=== PATIENT | female | born 1960 | race Caucasian/White ===

== ENCOUNTER 2017-07-15 10:19 | Outpatient (CLI) | payer OTHER ==
[2015-05-14 19:19] VITALS: BP 132/68
== END 2017-07-15 10:20 ==
LOC: LAB 10:19
PROVIDERS: ATTEND Physician Assistant
DX: R21 Rash and other nonspecific skin eruption (principal)
CPT/HCPCS: 36415; 86592; 86780

== ENCOUNTER 2017-08-21 09:43 | Outpatient (CLI) | payer OTHER ==
[2015-05-14 19:19] VITALS: BP 132/68
== END 2017-08-21 09:44 ==
LOC: LAB 09:43
PROVIDERS: ATTEND Family Medicine
DX: L74.519 Primary focal hyperhidrosis, unspecified (principal)
CPT/HCPCS: 36415; 84439; 84443; 84481

== ENCOUNTER 2018-06-05 09:52 | Outpatient (CLI) | payer OTHER ==
[2015-05-14 19:19] VITALS: BP 132/68
[2018-06-05 10:16] LABS: MEAN CORPUSCULAR HEMOGLOBIN 30.2 pg (28.0-34.0)
[2018-06-05 10:17] LABS: BASOPHILS % 0.4 (0.0-1.5); EOSINOPHILS % 2.8 % (0.0-6.8); NEUTROPHILS # 3.5 # k/uL (1.4-7.7)
[2018-06-05 10:27] LABS: eGFR (Non-African) > 60
== END 2018-06-05 10:05 ==
LOC: LAB 09:52
PROVIDERS: ATTEND Family Medicine
DX: R53.82 Chronic fatigue, unspecified (principal)
CPT/HCPCS: 36415; 80053; 85025

== ENCOUNTER 2019-02-09 08:44 | Outpatient (CLI) | payer OTHER ==
[2015-05-14 19:19] VITALS: BP 132/68
[2019-02-09 09:14] LABS: BASOPHILS % 0.4 % (0.0-1.5); NEUTROPHILS # 2.2 # k/uL (1.4-7.7)
[2019-02-09 09:39] LABS: eGFR (Non-African) > 60
== END 2019-02-09 08:46 ==
LOC: LAB 08:44
PROVIDERS: ATTEND Physician Assistant
DX: L40.3 Pustulosis palmaris et plantaris (principal)
CPT/HCPCS: 36415; 80053; 85025; 86704; 86706; 86803; 87340

== ENCOUNTER 2019-05-18 08:47 | Outpatient (CLI) | payer OTHER ==
[2015-05-14 19:19] VITALS: BP 132/68
[2019-05-18 08:58] LABS: BASOPHILS % 0.4 % (0.0-1.5); NEUTROPHILS # 3.2 # k/uL (1.4-7.7)
[2019-05-18 09:32] LABS: eGFR (Non-African) > 60
== END 2019-05-18 09:05 ==
LOC: LAB 08:47
PROVIDERS: ATTEND Physician Assistant
DX: L40.3 Pustulosis palmaris et plantaris (principal)
CPT/HCPCS: 36415; 80053; 85025

== ENCOUNTER 2019-06-30 17:32 | Emergency (ER) | payer OTHER ==
--- NOTE | 2019-06-30 17:39 | ED Physician Documentation ---
Chest Pain - HISTORIAN Historian: patient - HPI Stated Complaint: chest pain Chief Complaint: Chest Pain Onset: minutes (35) Timing: still present Duration: waxing, waning Last known Well Date: 06/30/19 Last Known Well Time: 17:30 Context: rest Severity: mild Quality: pressure, tightness, burning Chest Pain Radiation: no radiation Chest Pain Signs/Symptoms: denies: nausea, vomiting, diaphoresis, cool ex tremities, dizziness, dyspnea, tachypnea, tachycardia, hypotension, palpitations, weakness Worsened By: nothing Relieved By: nothing Further Comments: yes (She states about 35 min ago she started with pressure type chest pain - "mid chest down near start of stomach " She reports she knows she has "gallbladder issues" denies any radiation of pain no dizziness or sweating. No other complaints. she did not take any OTC meds prior to coming to ER) - ROS CONST: none EYES/ENT: none SKIN/ENDO: none NEURO/PSYCH: none - PAST HX ND risk factors: no pertinent history TAD/AAA risk factors: none Neuro deficit: none GI disease: none Lung disease: none Surgeries/Procedures: none Allergies/Adverse Reactions: Allergies Allergy/AdvReac Type Severity Reaction Status Date / Time No Known Drug Allergies Allergy Verified 06/30/19 18:03 Home Medications: Ambulatory Orders Medication Instructions Recorded Mirabegron [Myrbetriq] 25 mg PO DAILY 01/13/19 - SOCIAL HX Smoking History: non-smoker Alcohol Use: none Drug Use: none - FAMILY HX Family HX: none - VITAL SIGNS Vital Signs: Vital Signs Temp Pulse Resp BP Pulse Ox 132/68 05/14/15 17:17 - REVIEWED ASSESSMENTS Nursing Assessment Reviewed: Yes Vitals Reviewed: Yes Progress - Progress Progress: 1818: she denies any further chest pain states now she has what she would call abdominal pain and is requesting med for stomach - she reports she knows she has gallbladder issues and she had a bbq sauce tonight that she knew would make her feel this way DG Chest Pain Physical Exam - EXAM General Appearance: no acute distress, alert EENT: eye inspection normal Neck: nml inspection Respiratory: no resp. distress, chest non-tender, nml breath sounds CVS: reg. rate & rhythm, no murmur Abdomen: soft, normal bowel sounds, tenderness (epigastric ) Skin: warm/dry, normal color Extremities: non-tender, normal range of motion, no evidence of injury Neuro: oriented X3 Discharge Clincal Impression: Reflux esophagitis Referrals: Ryan Lopez MD [REFERRING] - 2 Days Comments: 1. omeprazole 20 mg take 1 by mouth daily 2. Diet changes to obtain pain free 3. Follow up with PCP 4. Return to ER for any increased concerns Condition: Stable Disposition: 01 HOME, SELF-CARE Decision to Admit: NO Date of Decison to Admit: 06/30/19 Decision Time: 18:33
[2019-06-30 17:52] LABS: BASOPHILS % 0.5 % (0.0-1.5); NEUTROPHILS # 5.1 # k/uL (1.4-7.7)
[2019-06-30] MEDS: ASPIRIN 81 MG CHEW TAB PO ONE (17:54)
--- NOTE | 2019-06-30 17:57 | Diagnostic Imaging Report ---
PATIENT MR#: [id number] PATIENT PATIENT NAME: DEEPTHI CRENSHAW DATE OF : 1960 REFERRING PHYSICIAN: Maribeth Trinidad EXAM DATE: 06/30/2019 ACCESSION NUMBER: [id number] EXAM DESCRIPTION: CHEST 2VIEW Exam: Chest two views. History: Chest pain. Lung nguyễn are well aerated without adams consolidation or effusion. Heart and mediastinal contour are normal. Impression: No adams consolidation or effusion. Read by: Dr. Griffin Vieira Transcribed by: Transcribed Date: Electronically signed by: Dr. Griffin Vieira Date signed: 06/30/2019 5:56:11 PM
[2019-06-30 18:02] LABS: eGFR (Non-African) > 60
[2019-06-30] MEDS: PANTOPRAZOLE SODIUM 40 MG in SODIUM CHLORIDE 0.9 % (FLUSH) 10 ML IVP ONE (18:22)
[2019-06-30 18:47] VITALS: BP 114/59
== END 2019-06-30 18:40 | disposition home or self-care (01) ==
LOC: ED 17:32
DX: K21.0 Gastro-esophageal reflux disease with esophagitis (principal)
CPT/HCPCS: 80053; 84484; 85025; 85379; 99284; S1016